=== PATIENT | female | born 1975 | race Caucasian/White ===

== ENCOUNTER 2018-03-25 19:46 | Inpatient (IN) ==
--- NOTE | 2018-03-25 20:20 | Emergency Department Note ---
Disposition Clinical Impression: Acute anxiety, Substance abuse, Auditory hallucinations UTI (urinary tract infection) Qualifiers: Urinary tract infection type: acute cystitis Hematuria presence: without hematuria Qualified Code(s): N30.00 - Acute cystitis without hematuria Disposition: Admitted As Inpatient Condition: Good Time of Disposition: 23:11 Psych HPI - General Chief Complaint: ED Psychiatric Symptoms Stated Complaint: auditory hallucinations Time Seen by Provider: 03/25/18 20:07 Source: patient Nursing Notes Reviewed: Yes Vital Signs Reviewed: Yes - History of Present Illness HPI Narrative: 43-year-old female with prior psychiatric history on medication presents to the emergency department with a complaint of increased auditory hallucinations. She states there was a recent in the family and she has had problems at work and has just been under a lot of stress and has not been able to handle the stress very well. She does have a history of drug use. She is unsure if she has used any drugs. She states she normally uses cocaine. She denies alcohol use. She denies suicidal or homicidal ideation or thoughts. She denies visual hallucinations. Patient states that she fell down some stairs earlier. She complains of multiple areas of scrapes and contusions but no specific significant injuries. She complains of pain in both knees and left elbow. She does know if she hit her head or not but denies any significant headache. Denies neck pain. She does have some pain in the mid and lower back however this also was not acute and has been present for some time. She thinks she may have fell several days ago also. Pt complaint: anxiety, other (Auditory hallucinations) If medical clearance, reason: psychiatric condition Onset (ago): unknown Duration: constant, changing over time, getting worse History of similar episodes: Yes Improves with: medication Worsens with: drug use, other (Stress) Context: significant life stressor Alleged intoxication: No Associated Psychiatric Symptoms: auditory hallucinations, anxiety Associated symptoms: Reports: denies other symptoms Treatments prior to arrival: none Self harm or harm to others: denies thoughts of harming self/others - Related Data Home Medications Medication Instructions Recorded Confirmed ALPRAZolam [Xanax 1 MG Tablet] 1 mg PO TID 02/16/18 02/16/18 Brexpiprazole [Rexulti] 3 mg PO DAILY 02/16/18 02/16/18 Cyanocobalamin (Vitamin B-12) 1,000 mcg PO DAILY 02/16/18 02/16/18 [Vitamin B12] Duloxetine HCl [Cymbalta] 60 mg PO BID 02/16/18 02/16/18 Ergocalciferol (VITAMIN D2) 50,000 unit PO MO 02/16/18 02/16/18 [Vitamin D2] Loratadine [Allergy Relief] 10 mg PO DAILY 02/16/18 02/16/18 Sotalol [Betapace] 80 mg PO BID 02/16/18 02/16/18 Previous Rx's Medication Instructions Recorded cephALEXin [Keflex] 500 mg PO BID #10 capsule 03/25/18 Allergies Allergy/AdvReac Type Severity Reaction Status Date / Time cariprazine [From Vraylar] AdvReac See Verified 02/16/18 21:14 Comments All systems ED: reviewed and negative except as stated. Constitutional: Denies: fever, chills, weakness Cardiovascular: Denies: chest pain, syncope Respiratory: Denies: cough, dyspnea Gastrointestinal: Denies: abdominal pain, vomiting, diarrhea Genitourinary: Denies: dysuria, frequency, abnormal menses Neurological: Denies: headache, weakness, numbness, paresthesias Psychiatric: Reports: anxiety, auditory hallucinations. 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 Rapid pressured speech. She appears to be under the influence of drugs.) - Head Head exam: atraumatic, normocephalic, normal inspection - Eye Eye exam: Present: normal appearance, PERRL, EOMI. Absent: scleral icterus, conjunctival injection - ENT ENT exam: normal exam, normal oropharynx, mucous membranes moist - Neck Neck exam: Present: normal inspection, full ROM, trachea midline. Absent: tenderness, meningismus, lymphadenopathy - Chest Chest inspection: Present: normal inspection, symmetric chest wall rise. Absent: tenderness - Respiratory Respiratory exam: Present: normal lung sounds bilaterally. Absent: respiratory distress, wheezes, stridor - Cardiovascular Cardiovascular exam: Present: regular rate, normal rhythm, normal heart sounds - Abdominal Exam Abdominal exam: Present: soft, Non-Tender, normal bowel sounds. Absent: distention, guarding, rebound, rigidity - Extremities Exam Extremities exam: Present: full ROM, other (There is a superficial abrasion to the left elbow area. Small bruise to the right forearm. Mild contusion to the anterior knees bilaterally with some mild erythema. No significant swelling or deformity.). Absent: pedal edema, joint swelling - Back Exam Back exam: Present: normal inspection, full ROM. Absent: tenderness, CVA tenderness (R), CVA tenderness (L) - Neurological Exam Neurological exam: Present: alert. Absent: motor sensory deficit - Psychiatric Psychiatric exam: Present: agitated, anxious. Absent: homicidal ideation, suicidal ideation - Skin Skin exam: Present: warm, dry. Absent: cyanosis, diaphoresis Course Course Narrative: 43-year-old female with psychiatric history presents with increased stress and increased auditory hallucinations. She denies suicidal or homicidal ideation. She admits to drug use. Unsure if she used any today. She did have a fall, she thinks on some stairs. She has several small bruises and scrapes but nothing that needs imaged. Urine tox screen positive for amphetamine and benzodiazepines. Patient medically cleared. [address] psychiatry department was consulted to evaluate patient in the emergency department. After evaluation patient is being admitted to the [address] psychiatric unit. [place] slip signed by me. Patient did receive Geodon 20 mg IM due to increased agitation and she became uncooperative. She also was given Keflex 500 mg by mouth for her UTI as well as a prescription. Vital Signs Temperature 97.5 F L 03/25/18 20:18 Pulse Rate 97 03/25/18 20:18 Respiratory Rate 20 03/25/18 20:18 Blood Pressure 129/90 03/25/18 20:18 O2 Sat by Pulse Oximetry 95 03/25/18 20:18 Temperature 97.5 F L 03/25/18 20:18 Pulse Rate 98 03/26/18 00:20 Respiratory Rate 18 03/26/18 00:20 Blood Pressure 103/69 03/26/18 00:20 O2 Sat by Pulse Oximetry 97 03/26/18 00:20 Oxygen Delivery Oxygen Delivery Room Air Psych - Lab Data Lab results reviewed: Yes I reviewed the patient's lab results. Result diagrams: 03/25/18 20:21 03/25/18 20:21 Lab Results 03/25/18 03/25/18 03/25/18 Range/Units 20:21 20:21 20:23 WBC 10.1 (4.3-11.1) K/mcL RBC 3.87 (3.82-4.97) M/mcL Hgb 11.5 (11.5-15.4) g/dL Hct 33.1 L (35.3-44.9) % MCV 85.5 (83.0-100.0) fL MCH 29.7 (28.0-33.3) pg MCHC 34.7 (31.6-35.5) g/dL RDW 12.4 (11.5-14.5) % Plt Count 247 (140-400) K/mcL MPV 9.0 L (9.4-12.4) fL Immature Gran % 0.3 (0-4) % Seg Neutrophils % 63.8 % Lymphocytes % 23.6 % Monocytes % 10.2 % Eosinophils % 1.2 % Basophils % 0.9 % Neutrophils # 6.5 (1.6-8.9) K/mcL Lymphocytes # 2.4 (0.6-4.6) K/mcL Monocytes # 1.0 (0.0-1.3) K/mcL Eosinophils # 0.1 (0.0-0.6) K/mcL Basophils # 0.1 (0.0-0.2) K/mcL Sodium 140 (136-145) mEq/L Potassium 3.7 (3.5-5.1) mEq/L Chloride 109 H (98-107) mEq/L Carbon Dioxide 21 L (23-29) mEq/L BUN 23 H (6-20) mg/dL Creatinine 0.95 (0.60-1.20) mg/dL Est GFR ( Amer) > 60 (> 60) Est GFR (Non-Af Amer) > 60 (> 60) BUN/Creatinine Ratio 24 (6-26) Glucose 90 (70-105) mg/dL Calculated Osmolality 293 (280-300) Calcium 9.0 (8.6-10.3) mg/dL Urine Color Yellow (Yellow) Urine Clarity Clear (Clear) Urine pH 6.0 (5.0-8.0) pH Units Ur Specific [facility] 1.025 (1.010-1.025) Urine Protein 30 H (Neg-Trace) mg/dL Urine Glucose (UA) Normal (Normal) mg/dL Urine Ketones Trace H (Negative) mg/dL Urine Blood Moderate H (Negative) Urine Nitrite Negative (Negative) Urine Bilirubin Negative (Negative) Urine Urobilinogen Normal (Normal) mg/dL Ur Leukocyte Esterase Small H (Negative) Urine Microscopic RBC 3-5 H (0-3) per hpf Urine Microscopic WBC 15-30 H (0-3) per hpf Ur Squamous Epith Cells Many H (None-Few) per lpf Urine Bacteria Few (None-Few) per hpf Hyaline Casts Few (None-Few) per lpf Urine Test (Negative) Salicylates < 2.5 L (15.0-30.0) mg/dL Urine Opiates Screen (Rymutp=373) ng/mL Acetaminophen < 10 L (10-20) mcg/mL Ur Barbiturates Screen (Wlftro=705) ng/mL Ur Phencyclidine Scrn (Cutoff=25) ng/mL Ur Amphetamines Screen (Orzfyl=1570) ng/mL U Benzodiazepines Scrn (Ecfpal=229) ng/mL Urine Cocaine Screen (Cutoff= 300) ng/mL U Marijuana (THC) Screen (Cutoff = 50) ng/mL Ur Drug Screen Interp Ethyl Alcohol < 10 (Less than 10) mg/dL 03/25/18 03/25/18 Range/Units 20:23 20:23 WBC (4.3-11.1) K/mcL RBC (3.82-4.97) M/mcL Hgb (11.5-15.4) g/dL Hct (35.3-44.9) % MCV (83.0-100.0) fL MCH (28.0-33.3) pg MCHC (31.6-35.5) g/dL RDW (11.5-14.5) % Plt Count (140-400) K/mcL MPV (9.4-12.4) fL Immature Gran % (0-4) % Seg Neutrophils % % Lymphocytes % % Monocytes % % Eosinophils % % Basophils % % Neutrophils # (1.6-8.9) K/mcL Lymphocytes # (0.6-4.6) K/mcL Monocytes # (0.0-1.3) K/mcL Eosinophils # (0.0-0.6) K/mcL Basophils # (0.0-0.2) K/mcL Sodium (136-145) mEq/L Potassium (3.5-5.1) mEq/L Chloride (98-107) mEq/L Carbon Dioxide (23-29) mEq/L BUN (6-20) mg/dL Creatinine (0.60-1.20) mg/dL Est GFR ( Amer) (> 60) Est GFR (Non-Af Amer) (> 60) BUN/Creatinine Ratio (6-26) Glucose (70-105) mg/dL Calculated Osmolality (280-300) Calcium (8.6-10.3) mg/dL Urine Color (Yellow) Urine Clarity (Clear) Urine pH (5.0-8.0) pH Units Ur Specific [facility] (1.010-1.025) Urine Protein (Neg-Trace) mg/dL Urine Glucose (UA) (Normal) mg/dL Urine Ketones (Negative) mg/dL Urine Blood (Negative) Urine Nitrite (Negative) Urine Bilirubin (Negative) Urine Urobilinogen (Normal) mg/dL Ur Leukocyte Esterase (Negative) Urine Microscopic RBC (0-3) per hpf Urine Microscopic WBC (0-3) per hpf Ur Squamous Epith Cells (None-Few) per lpf Urine Bacteria (None-Few) per hpf Hyaline Casts (None-Few) per lpf Urine Test Negative (Negative) Salicylates (15.0-30.0) mg/dL Urine Opiates Screen Negative (Nwtxtv=941) ng/mL Acetaminophen (10-20) mcg/mL Ur Barbiturates Screen Negative (Bzwaxb=405) ng/mL Ur Phencyclidine Scrn Negative (Cutoff=25) ng/mL Ur Amphetamines Screen Positive H (Ycebuo=6960) ng/mL U Benzodiazepines Scrn Positive H (Lcyzpy=053) ng/mL Urine Cocaine Screen Negative (Cutoff= 300) ng/mL U Marijuana (THC) Screen Negative (Cutoff = 50) ng/mL Ur Drug Screen Interp See Below Ethyl Alcohol (Less than 10) mg/dL Psychiatric Medical Clearance - Medical Clearance Checklist Medical History: No Social History Section defined Current Vitals: Last Vital Signs Temp 97.5 F L 03/25/18 20:18 Pulse 98 03/26/18 00:20 Resp 18 03/26/18 00:20 BP 103/69 03/26/18 00:20 Pulse Ox 97 03/26/18 00:20 Psychiatric Lab Panel: Drug Levels and Toxicity 03/25/18 03/25/18 20:21 20:23 Urine Opiates Screen Negative Acetaminophen < 10 L Ur Barbiturates Screen Negative Ur Phencyclidine Scrn Negative Ur Amphetamines Screen Positive H U Benzodiazepines Scrn Positive H Urine Cocaine Screen Negative U Marijuana (THC) Screen Negative Ethyl Alcohol < 10 Abnormal Labs: Abnormal lab results Hct 33.1 % (35.3-44.9) L 03/25/18 20:21 MPV 9.0 fL (9.4-12.4) L 03/25/18 20:21 Chloride 109 mEq/L (98-107) H 03/25/18 20:21 Carbon Dioxide 21 mEq/L (23-29) L 03/25/18 20:21 BUN 23 mg/dL (6-20) H 03/25/18 20:21 Urine Protein 30 mg/dL (Neg-Trace) H 03/25/18 20:23 Urine Ketones Trace mg/dL (Negative) H 03/25/18 20:23 Urine Blood Moderate (Negative) H 03/25/18 20:23 Ur Leukocyte Esterase Small (Negative) H 03/25/18 20:23 Urine Microscopic RBC 3-5 per hpf (0-3) H 03/25/18 20:23 Urine Microscopic WBC 15-30 per hpf (0-3) H 03/25/18 20:23 Ur Squamous Epith Cells Many per lpf (None-Few) H 03/25/18 20:23 Salicylates < 2.5 mg/dL (15.0-30.0) L 03/25/18 20:21 Acetaminophen < 10 mcg/mL (10-20) L 03/25/18 20:21 Ur Amphetamines Screen Positive ng/mL (Wdfknv=1704) H 03/25/18 20:23 U Benzodiazepines Scrn Positive ng/mL (Ftfgge=810) H 03/25/18 20:23 Statement of Medical Clearance: I have evaluated the patient, reviewed diagnostic information, and certify that the patient's medical condition is sufficiently stable that transfer to the psychiatric unit does not pose a significant risk of deterioration.
[2018-03-25 20:33] LABS: Basophils # 0.1 K/mcL (0.0-0.2); Basophils % 0.9 %; Eosinophils # 0.1 K/mcL (0.0-0.6); Eosinophils % 1.2 %; Hematocrit 33.1 % (35.3-44.9); Hemoglobin 11.5 g/dL (11.5-15.4); Immature Granulocytes % 0.3 % (0-4); Lymphocytes # 2.4 K/mcL (0.6-4.6); Lymphocytes % 23.6 %; Mean Corpuscular HGB Conc 34.7 g/dL (31.6-35.5); Mean Corpuscular Hemoglobin 29.7 pg (28.0-33.3); Mean Corpuscular Volume 85.5 fL (83.0-100.0); Monocytes % 10.2 %; Neutrophils # 6.5 K/mcL (1.6-8.9); Platelet Count 247 K/mcL (140-400); Red Blood Count 3.87 M/mcL (3.82-4.97); Red Cell Distribution Width 12.4 % (11.5-14.5); Segmented Neutrophils % 63.8 %
[2018-03-25 20:39] LABS: Bilirubin,Urine Negative (Negative); Blood,Urine Moderate (Negative); Clarity,Urine Clear (Clear); Color,Urine Yellow (Yellow); Glucose,Urine (UA) Normal (Normal); Ketones,Urine Trace mg/dL (Negative); Leukocyte Esterase,Urine Small (Negative); Nitrite,Urine Negative (Negative); Protein,Urine 30 mg/dL (Neg-Trace); Specific Gravity,Urine 1.025 (1.010-1.025); Urobilinogen,Urine Normal (Normal)
[2018-03-25 20:41] LABS: Bacteria,Urine Few per hpf (None-Few); Hyaline Casts,Urine Few per lpf (None-Few); Squamous Epithelial Cell,Urine Many per lpf (None-Few); WBC,Urine 15-30 per hpf (0-3)
[2018-03-25 20:50] LABS: Acetaminophen < 10 mcg/mL (10-20); BUN/Creatinine Ratio 24 (6-26); Blood Urea Nitrogen 23 mg/dL (6-20); Carbon Dioxide 21 mEq/L (23-29); Chloride 109 mEq/L (98-107); Ethanol < 10 mg/dL (Less than 10); Glucose 90 mg/dL (70-105); Osmolality,Calculated 293 (280-300); Potassium 3.7 mEq/L (3.5-5.1); Salicylate < 2.5 mg/dL (15.0-30.0); Sodium 140 mEq/L (136-145); eGFR For Non-African Americans > 60 (> 60)
[2018-03-25 20:52] LABS: Amphetamine Screen,Urine Positive ng/mL (Cutoff=1000); Barbiturate Screen,Urine Negative ng/mL (Cutoff=200); Benzodiazepines Screen,Urine Positive ng/mL (Cutoff=200); Cannabinoid Screen,Urine Negative ng/mL (Cutoff = 50); Cocaine Screen,Urine Negative ng/mL (Cutoff= 300); Opiate Screen,Urine Negative ng/mL (Cutoff=300); Phencyclidine Screen,Urine Negative ng/mL (Cutoff=25)
[2018-03-25] MEDS ORDERED: Ziprasidone injection 20 MG/ML VIAL IM ONE (23:00)
[2018-03-25] MEDS ORDERED: cephALEXin 250 MG CAPSULE PO STA (23:01)
[2018-03-26] MEDS ORDERED: MOM Conc 10 ML UD.LIQ PO PRN (01:57)
[2018-03-26] MEDS ORDERED: *HR* LORazepam 1 MG TABLET PO PRN (01:57)
[2018-03-26] MEDS ORDERED: Ibuprofen 400 MG TABLET PO PRN (01:57)
[2018-03-26] MEDS ORDERED: Mag Hydrox/Al Hydrox/Simeth 30 ML UDC PO PRN (01:57)
[2018-03-26] MEDS ORDERED: Haloperidol Lactate 5 MG/ML VIAL IM PRN (01:57)
[2018-03-26] MEDS ORDERED: *HR* LORazepam 2 MG/ML VIAL IM PRN (01:57)
[2018-03-26] MEDS ORDERED: clonazePAM 1 MG TABLET PO PRN (10:59)
[2018-03-26] MEDS ORDERED: NON-FORMULARY MEDICATION 1 EACH EACH (Duloxetine Hcl [Cymbalta] 60 MG) PO SCH (11:00)
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
[2018-03-26] MEDS: Cyanocobalamin (B-12) 1,000 MCG TABLET PO SCH (13:46)
[2018-03-27] MEDS: hydrOXYzine pamoate 25 MG CAPSULE PO PRN ×2 (00:26→21:42)
[2018-03-27] MEDS: traZODone 50 MG TABLET PO PRN ×2 (00:26→21:42)
[2018-03-27] MEDS: Cyanocobalamin (B-12) 1,000 MCG TABLET PO SCH (09:35)
[2018-03-27] MEDS: cephALEXin 500 MG CAPSULE PO SCH ×2 (09:38→21:42)
--- NOTE | 2018-03-27 18:15 | Psychiatry Progress Note ---
Date of Encounter: 03/27/18 Time of Encounter: 08:00 Subjective Interval history: Patient tolerating being back on her psychiatric medications. She denies SI or HI. She is still having some AH and VH and thought blocking. Was not able to attend any groups yesterday. Review of Systems Constitutional: Denies: fever, chills, weakness, weight change Musculoskeletal: Denies: joint swelling, joint pain Neurological: Denies: headache, weakness, numbness, memory loss Psychiatric: Reports: depression, anxiety, auditory hallucinations, difficulty concentrating, hopelessness Results - Vital Signs Vital Signs: Temp Pulse Resp BP Pulse Ox 99.6 F 73 20 120/75 99 03/27/18 09:00 03/27/18 09:00 03/27/18 09:00 03/27/18 09:00 03/27/18 09:00 Assessment and Plan (1) Acute psychosis Current visit: No Status: Acute Plan: Continue hospitalization, Close observation, Suicide Precautions per unit protocol, Encourage participation in unit milieu, Group Therapy, Monitor sleep, Monitor appetite Additional Plan: continue medications. Encourage groups Risks, benefits, side effects, alternatives discussed w/pt: Yes Patient agreeable to treatment: Yes Consult Discharge Plan - Plan Referrals: NONE,PCP [Primary Care Provider] - Psychiatry Exam - Constitutional Vitals: Temp Pulse Resp BP Pulse Ox 99.6 F 73 20 120/75 99 03/27/18 09:00 03/27/18 09:00 03/27/18 09:00 03/27/18 09:00 03/27/18 09:00 General appearance: disheveled, thin - Musculoskeletal Gait: slow Station: slouched Strength & Tone: normal for patient - Psychiatric Patient Orientation: Yes Person, Yes Time, Yes Place Level of alertness: Alert Behavior: distractible Psychomotor activity: Slowed Eye Contact: Minimal Contact Mood Description: Depressed Patient description of mood: "fine" Affect description: blunted Speech Volume: Soft/Quiet Speech pattern: limited Language & Vocabulary: limited Thought Process: Thought Blocking Thought Content: No Suicidal ideation, No Homicidal ideation Perceptual Disturbances: Yes Auditory hallucinations, Yes Visual hallucinations Attention Span Ability: Unable to Sustain Attention Memory Description: Grossly Intact Patient Reliability: Questionable Historian Fund of knowledge: Yes average Intelligence Estimate: Average Judgment: Limited Insight: Minimal
--- NOTE | 2018-03-28 08:39 | Discharge Summary ---
Date of Encounter: 03/28/18 Time of Encounter: 08:07 Diagnosis - Discharge Diagnosis (1) Major depression with psychotic features Status: Acute Medications - Discharge Medications Prescriptions: Buspirone HCl [Buspar] 10 mg PO TID #90 tablet hydrOXYzine pamoate [HydrOXYzine Pamoate] 25 mg PO TID PRN #60 capsule PRN Reason: Anxiety Lurasidone [Latuda] 40 mg PO DAILY #30 tablet traZODone [TraZODone] 50 mg PO HS PRN #30 tablet PRN Reason: Insomnia ALPRAZolam [Xanax 1 MG Tablet] 1 mg PO TID 02/16/18 [History] Cyanocobalamin (Vitamin B-12) [Vitamin B12] 1,000 mcg PO DAILY 02/16/18 [History] Duloxetine HCl [Cymbalta] 120 mg PO DAILY 02/16/18 [History] Ergocalciferol (VITAMIN D2) [Vitamin D2] 50,000 unit PO QWEEK 02/16/18 [History] Loratadine [Allergy Relief] 10 mg PO DAILY 02/16/18 [History] Sotalol [Betapace] 80 mg PO BID 02/16/18 [History] Benztropine Mesylate 0.5 mg PO BID PRN 03/26/18 [History] Buspirone HCl [Buspar] 10 mg PO TID #90 tablet 03/28/18 [Rx] Lurasidone [Latuda] 40 mg PO DAILY #30 tablet 03/28/18 [Rx] cephALEXin [Keflex] 500 mg PO BID capsule 03/28/18 [Rx] hydrOXYzine pamoate [HydrOXYzine Pamoate] 25 mg PO TID PRN #60 capsule 03/28/18 [Rx] traZODone [TraZODone] 50 mg PO HS PRN #30 tablet 03/28/18 [Rx] Allergy/AdvReac Type Severity Reaction Status Date / Time cariprazine [From Vraylar] AdvReac See Verified 02/16/18 21:14 Comments Results Procedures and tests throughout hospitalization: Completed Lab Orders Category Date Time Status Acetaminophen Stat Lab 03/25/18 20:21 Completed Basic Metabolic Panel Stat Lab 03/25/18 20:21 Completed Complete Blood Count [HEME] Stat Lab 03/25/18 20:21 Completed Drug Screen, Urine [UCHEM] Stat Lab 03/25/18 20:23 Completed Ethanol Stat Lab 03/25/18 20:21 Completed Test Result, Urine [URIN] Stat Lab 03/25/18 20:23 Completed Salicylate Stat Lab 03/25/18 20:21 Completed Urinalysis reflex Microscopic [URIN] Stat Lab 03/25/18 20:23 Completed Laboratory Tests 03/25/18 03/25/18 03/25/18 20:21 20:21 20:23 WBC 10.1 RBC 3.87 Hgb 11.5 Hct 33.1 L MCV 85.5 MCH 29.7 MCHC 34.7 RDW 12.4 Plt Count 247 MPV 9.0 L Immature Gran % 0.3 Seg Neutrophils % 63.8 Lymphocytes % 23.6 Monocytes % 10.2 Eosinophils % 1.2 Basophils % 0.9 Neutrophils # 6.5 Lymphocytes # 2.4 Monocytes # 1.0 Eosinophils # 0.1 Basophils # 0.1 Sodium 140 Potassium 3.7 Chloride 109 H Carbon Dioxide 21 L BUN 23 H Creatinine 0.95 Est GFR ( Amer) > 60 Est GFR (Non-Af Amer) > 60 BUN/Creatinine Ratio 24 Glucose 90 Calculated Osmolality 293 Calcium 9.0 Urine Color Yellow Urine Clarity Clear Urine pH 6.0 Ur Specific [place] 1.025 Urine Protein 30 H Urine Glucose (UA) Normal Urine Ketones Trace H Urine Blood Moderate H Urine Nitrite Negative Urine Bilirubin Negative Urine Urobilinogen Normal Ur Leukocyte Esterase Small H Urine Microscopic RBC 3-5 H Urine Microscopic WBC 15-30 H Ur Squamous Epith Cells Many H Urine Bacteria Few Hyaline Casts Few Urine Test Salicylates < 2.5 L Urine Opiates Screen Acetaminophen < 10 L Ur Barbiturates Screen Ur Phencyclidine Scrn Ur Amphetamines Screen U Benzodiazepines Scrn Urine Cocaine Screen U Marijuana (THC) Screen Ur Drug Screen Interp Ethyl Alcohol < 10 03/25/18 03/25/18 20:23 20:23 WBC RBC Hgb Hct MCV MCH MCHC RDW Plt Count MPV Immature Gran % Seg Neutrophils % Lymphocytes % Monocytes % Eosinophils % Basophils % Neutrophils # Lymphocytes # Monocytes # Eosinophils # Basophils # Sodium Potassium Chloride Carbon Dioxide BUN Creatinine Est GFR ( Amer) Est GFR (Non-Af Amer) BUN/Creatinine Ratio Glucose Calculated Osmolality Calcium Urine Color Urine Clarity Urine pH Ur Specific [place] Urine Protein Urine Glucose (UA) Urine Ketones Urine Blood Urine Nitrite Urine Bilirubin Urine Urobilinogen Ur Leukocyte Esterase Urine Microscopic RBC Urine Microscopic WBC Ur Squamous Epith Cells Urine Bacteria Hyaline Casts Urine Test Negative Salicylates Urine Opiates Screen Negative Acetaminophen Ur Barbiturates Screen Negative Ur Phencyclidine Scrn Negative Ur Amphetamines Screen Positive H U Benzodiazepines Scrn Positive H Urine Cocaine Screen Negative U Marijuana (THC) Screen Negative Ur Drug Screen Interp See Below Ethyl Alcohol Provider Date of admission: 03/26/18 00:27 Primary care physician: PCP NONE Discharging clinician: Shyanne Butler Psychiatry Exam - Constitutional Vitals: Temp Pulse Resp BP Pulse Ox 98.4 F 85 18 106/76 100 03/27/18 20:21 03/27/18 20:21 03/27/18 20:21 03/27/18 20:21 03/27/18 20:21 General appearance: age & developmentally appropriate, well-groomed, well- nourished Additional observations: Patient is alert and oriented [address] time and situation, muscle tone grossly intact, speech normal limits for rhythm, rate, content and volume. Muscle tone is normal for patient. Grooming and hygiene are appropriate and eye contact is maintained appropriately. The patient appears age appropriate. Behavior is cooperative. Thought content is negative for suicidal or homicidal thoughts ideations or plans. There are no hallucinations or delusions. Mood is good and affect is reactive, consistent and congruent. Thought process is linear, logical, goal oriented and coherent thought. Memory is intact to recent and remote as the patient is able to recall several items after a delay and can consistently recall childhood information. Language and vocabulary are consistent with education and intelligence is estimated to be average based on education and general fund of information. Concentration and attention are sustained and appropriate. Insight and judgment are intact as the patient agrees with her diagnosis and the need for ongoing mental health treatment. - Musculoskeletal Gait: normal Station: relaxed Strength & Tone: normal for patient - Psychiatric Patient Orientation: Yes Person, Yes Time, Yes Place Level of alertness: Alert Behavior: calm, cooperative Psychomotor activity: Normal Eye Contact: Maintains Eye Contact Mood Description: Euthymic/stable Affect description: congruent with mood, full range Speech Volume: Normal Speech pattern: normal rate, normal rhythm, normal tone, fluent, spontaneous Language & Vocabulary: consistent with education Thought Process: Linear, Goal Oriented Thought Content: No Suicidal ideation, No Homicidal ideation, No Overt delusions Perceptual Disturbances: No Auditory hallucinations, No Visual hallucinations Attention Span Ability: Capable of Focused Attention Memory Description: Grossly Intact Patient Reliability: Reliable Historian Fund of knowledge: Yes abstraction ability, Yes aware of current events Intelligence Estimate: Average Judgment: Limited Insight: Partial Hospital Course Hospital course: Ms. Ruiz is a 43 year old female auditory hallucinations as well as depressive symptoms. She had been off her home with 2 days of this was restarted at 40 mg. We used Klonopin for control of her anxiety over she preferred to go back to her Xanax which she still had at home.Patient was educated of diagnosis and the risk-benefit side effects of this alternative treatment options and was monitored for responsiveness and side effects. Mood anxiety sleep and appetite interest improved as did future orientation. Self-harm thoughts subsided, thinking cleared, psychosis resolved, and mood stabilized. Patient was able to attend both individual and group therapy sessions as well as meeting with the psychiatrist daily and urged to discuss any medication or treatment issues or other concerns. The patient was educated primarily by verbal means about their diagnosis and manifestations in their life. The option for treatment including group and individual therapy programming was offered to the patient in the use of medications with all their potential risks, benefits, and side effects were discussed with the patient at length. The patient was given the opportunity to ask questions and was noted to participate in the treatment in the planning process. The patient felt ready and eager to be discharged from the inpatient psychiatric unit to continue on with treatment as an outpatient. Her 72 hour hold and there were not grounds to probate her. The patient agreed that is they were safe for this disposition. The patient was considered to be able to participate in informed consent and decision making with respect to medical, legal, and financial issues of the time of discharge. At the time of discharge the patient adamantly denied any concerns for lethality including suicidal or homicidal thoughts ideations or plans and was future oriented toward ongoing mental health care, medical follow-up and sobriety. Time spent discussing smoking cessation with patient: 3 to 10 minutes Does patient wish to continue nicotine replacement upon disc: No - Time Spent with Patient Total time spent providing and/or coordinating discharge services: Less than 30 minutes (Interval history reviewed. Available labs reviewed . Psychotherapy provided. Patient had an opportunity to ask questions and address concerns. Patient was in agreement with the treatment plan. The risks benefits and side effects of medications were discussed with the patient, including alternatives and treatment. The patient was educated on the abstaining from any alcohol or illicit substances, following up with all scheduled appointments, and taking all medications as prescribed. The patient was educated on 90 meetings in 90 days and to find a sponsor.) Assessment and Plan - Patient/Caregiver Discharge Instructions Activity: resume usual activities as tolerated Diet: regular diet Additional Instructions: Continue current medications. Follow up with outpatient mental health. Encourage continued therapy in a group or individual setting. The patient was discharged to home. - Follow up Plan Follow up with: NONE,PCP [Primary Care Provider] - Functional capacity at discharge: independent ambulation Overall status at discharge: Stable Disposition: Home, Self-Care Quality - Multiple Antipsychotics Patient discharged on 2 or more antipsychotic medications: No Procedures - Procedures Procedures: Medication Management, Crisis Stabilization, Supportive Therapy, Group Therapy, Psychoeducational Therapy
[2018-03-28 09:28] VITALS: BP 109/71
[2018-03-28] MEDS: cephALEXin 500 MG CAPSULE PO SCH (09:30)
[2018-03-28] MEDS: Cyanocobalamin (B-12) 1,000 MCG TABLET PO SCH (09:30)
== END 2018-03-28 11:05 | disposition home or self-care (01) | DRG 751 ==
LOC: EMEROOARM 19:46 → SUATTDRO 03-26 00:27 → 1ANU 03-26 00:27
PROVIDERS: ADMIT Psychiatry & Neurology Psychiatry; ATTEND Psychiatry & Neurology Psychiatry

== ENCOUNTER 2018-08-11 17:09 | Inpatient (IN) ==
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
[2018-08-11] MEDS ORDERED: 0.9 % Sodium Chloride 1,000 ML IVC STA ×2 (17:28→21:38)
[2018-08-11] MEDS ORDERED: *HR* LORazepam 2 MG/ML VIAL IVP ONE ×2 (17:29→18:08)
[2018-08-11] MEDS ORDERED: Haloperidol Lactate 5 MG/ML VIAL IVP ONE (17:54)
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
[2018-08-11 19:04] LABS: Basophils # 0.1 K/mcL (0.0-0.2); Basophils % 0.4 %; Eosinophils % 0.2 %; Hematocrit 30.9 % (35.3-44.9); Immature Granulocytes % 0.4 % (0-4); Lymphocytes # 1.3 K/mcL (0.6-4.6); Lymphocytes % 9.2 %; Mean Corpuscular HGB Conc 32.4 g/dL (31.6-35.5); Mean Corpuscular Hemoglobin 28.9 pg (28.0-33.3); Mean Corpuscular Volume 89.3 fL (83.0-100.0); Mean Platelet Volume 8.6 fL (9.4-12.4); Neutrophils # 11.3 K/mcL (1.6-8.9); Platelet Count 302 K/mcL (140-400); Red Blood Count 3.46 M/mcL (3.82-4.97); Red Cell Distribution Width 13.2 % (11.5-14.5); Segmented Neutrophils % 82.8 %; White Blood Count 13.6 K/mcL (4.3-11.1)
[2018-08-11 19:26] LABS: Alanine Aminotransferase 16 Units/L (7-52); Albumin 3.2 g/dL (3.5-5.7); Albumin/Globulin Ratio 1.8 (1.1-2.2); Alkaline Phosphatase 37 Units/L (34-104); Aspartate Amino Transferase 24 Units/L (13-39); BUN/Creatinine Ratio 26 (6-26); Bilirubin,Direct 0.1 mg/dL (0.0-0.2); Bilirubin,Indirect 0.6 mg/dL (0.0-1.2); Bilirubin,Total 0.7 mg/dL (0.3-1.0); Blood Urea Nitrogen 19 mg/dL (6-20); Calcium 7.5 mg/dL (8.6-10.3); Carbon Dioxide 18 mEq/L (23-29); Chloride 112 mEq/L (98-107); Creatine Kinase 450 Units/L (30-223); Globulin 1.8 g/dL (2.4-3.5); Glucose 65 mg/dL (70-105); Osmolality,Calculated 292 (280-300); Potassium 3.1 mEq/L (3.5-5.1); Sodium 141 mEq/L (136-145); Troponin I < 0.03 ng/mL (< 0.04); eGFR For African Americans > 60 (> 60); eGFR For Non-African Americans > 60 (> 60)
[2018-08-11] MEDS ORDERED: Naloxone 0.4 MG/ML INJ IVP PRN (22:12)
[2018-08-11] MEDS ORDERED: *HR* OxyCODONE Immed Rel 5 MG TABLET PO PRN (22:12)
[2018-08-11] MEDS ORDERED: *HR* LORazepam 2 MG/ML VIAL IVP PRN (22:13)
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
[2018-08-12] MEDS ORDERED: Potassium Effervescent 25 MEQ TABLET.EFF PO ONE (00:29)
[2018-08-12 00:59] LABS: Basophils # 0.1 K/mcL (0.0-0.2); Basophils % 0.6 %; Eosinophils # 0.1 K/mcL (0.0-0.6); Eosinophils % 0.8 %; Hemoglobin 10.9 g/dL (11.5-15.4); Immature Granulocytes % 0.5 % (0-4); Immature Platelets 0.7 % (1.1-6.1); Lymphocytes # 1.2 K/mcL (0.6-4.6); Lymphocytes % 12.5 %; Mean Corpuscular HGB Conc 31.1 g/dL (31.6-35.5); Mean Corpuscular Hemoglobin 28.1 pg (28.0-33.3); Mean Corpuscular Volume 90.2 fL (83.0-100.0); Mean Platelet Volume 8.5 fL (9.4-12.4); Monocytes # 0.7 K/mcL (0.0-1.3); Monocytes % 6.8 %; Neutrophils # 7.8 K/mcL (1.6-8.9); Platelet Count 323 K/mcL (140-400); Red Blood Count 3.88 M/mcL (3.82-4.97); Red Cell Distribution Width 13.4 % (11.5-14.5); Segmented Neutrophils % 78.8 %; White Blood Count 9.9 K/mcL (4.3-11.1)
[2018-08-12 01:20] LABS: BUN/Creatinine Ratio 28 (6-26); Blood Urea Nitrogen 18 mg/dL (6-20); Calcium 7.7 mg/dL (8.6-10.3); Carbon Dioxide 16 mEq/L (23-29); Chloride 112 mEq/L (98-107); Creatine Kinase 396 Units/L (30-223); Glucose 73 mg/dL (70-105); Osmolality,Calculated 282 (280-300); Phosphorous 2.9 mg/dL (2.7-4.5); Potassium 3.8 mEq/L (3.5-5.1); Sodium 136 mEq/L (136-145); eGFR For African Americans > 60 (> 60); eGFR For Non-African Americans > 60 (> 60)
[2018-08-12] MEDS: Ringers Solution, Lactated 1,000 ML IVC SCH ×2 (01:59→06:01)
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
[2018-08-12] MEDS ORDERED: *HR* LORazepam 2 MG/ML VIAL IVP PRN (13:43)
[2018-08-12] MEDS: traMADol 50 MG TABLET PO PRN (21:15)
[2018-08-13 01:54] LABS: Hematocrit 33.2 % (35.3-44.9); Hemoglobin 10.8 g/dL (11.5-15.4); Mean Corpuscular HGB Conc 32.5 g/dL (31.6-35.5); Mean Corpuscular Volume 89.2 fL (83.0-100.0); Mean Platelet Volume 8.7 fL (9.4-12.4); Platelet Count 319 K/mcL (140-400); Red Blood Count 3.72 M/mcL (3.82-4.97); Red Cell Distribution Width 13.7 % (11.5-14.5)
[2018-08-13 02:01] LABS: White Blood Count 5.9 K/mcL (4.3-11.1)
[2018-08-13 02:16] LABS: BUN/Creatinine Ratio 12 (6-26); Blood Urea Nitrogen 10 mg/dL (6-20); Carbon Dioxide 24 mEq/L (23-29); Chloride 109 mEq/L (98-107); Glucose 118 mg/dL (70-105); Osmolality,Calculated 288 (280-300); Potassium 3.5 mEq/L (3.5-5.1); Sodium 139 mEq/L (136-145); eGFR For African Americans > 60 (> 60); eGFR For Non-African Americans > 60 (> 60)
[2018-08-13] MEDS: traMADol 50 MG TABLET PO PRN ×3 (04:01→20:28)
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
[2018-08-13] MEDS ORDERED: Ondansetron ODT 4 MG TAB.RAPDIS SL PRN (09:40)
--- NOTE | 2018-08-13 10:37 | Electrocardiograph Report ---
[address] [address] Test Date: 2018-08-11 Pat Name: Mayela Escoto Department: [id number] Room: 3B13 Gender: F Shank Stitcher: : 1975 Requested By: Marlene Lopez Order Number: [id number] Reading MD: Parker Sparks Measurements Intervals [place] Rate: 112 P: 83 ID: [id number] QRS: 70 QRSD: 102 T: 90 QT: 360 QTc: 492 Interpretive Statements Sinus tachycardia RSR' in V1 or V2, right VCD or RVH Borderline prolonged QT interval Electronically Signed On 08-13-2018 10:36:12 EDT by Parker Sparks
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
[2018-08-14] MEDS: traMADol 50 MG TABLET PO PRN ×3 (05:12→20:22)
[2018-08-14 07:30] LABS: Hematocrit 33.6 % (35.3-44.9); Mean Corpuscular HGB Conc 32.7 g/dL (31.6-35.5); Mean Corpuscular Hemoglobin 28.8 pg (28.0-33.3); Mean Platelet Volume 8.5 fL (9.4-12.4); Platelet Count 280 K/mcL (140-400); Red Blood Count 3.82 M/mcL (3.82-4.97); Red Cell Distribution Width 13.6 % (11.5-14.5)
[2018-08-14 07:32] LABS: White Blood Count 9.8 K/mcL (4.3-11.1)
[2018-08-14 07:52] LABS: BUN/Creatinine Ratio 18 (6-26); Blood Urea Nitrogen 10 mg/dL (6-20); Calcium 8.3 mg/dL (8.6-10.3); Carbon Dioxide 27 mEq/L (23-29); Chloride 102 mEq/L (98-107); Glucose 111 mg/dL (70-105); Osmolality,Calculated 284 (280-300); Potassium 3.9 mEq/L (3.5-5.1); Sodium 137 mEq/L (136-145); eGFR For African Americans > 60 (> 60); eGFR For Non-African Americans > 60 (> 60)
[2018-08-14] MEDS ORDERED: traZODone 50 MG TABLET PO PRN (07:53)
[2018-08-14] MEDS: Loratadine 10 MG TABLET PO SCH (09:40)
[2018-08-14] MEDS: Cholecalciferol (D-3) 1,000 UNIT TABLET PO SCH (09:40)
[2018-08-14] MEDS: Multivit/Ca/Min/Fe/FA 1 TAB TABLET PO SCH (09:41)
[2018-08-14] MEDS: OLANZapine 5 MG TAB.RAPDIS PO SCH ×2 (09:41→20:22)
[2018-08-14] MEDS ORDERED: Aminoglycoside Consult 1 EACH MC ONE (10:54)
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
[2018-08-14] MEDS ORDERED: Isovue-370 500 ML BOTTLE IVP ONE (13:31)
--- NOTE | 2018-08-14 15:23 | Event Note ---
Date of Encounter: 08/14/18 Time of Encounter: 15:18 Notified by nursing around time of discharging patient that she is having right arm swelling at place of IV site that was removed. Appears overnight cultures of IV tip was sent prior to new IV. No documentation was placed in chart. On exam there is erythema on cubital fossa region which is tender with slight firmness. There is a slight purulence at area of prior IV site insertion. CT arm obtained showed possible thrombophlebitis. Will start a dose for today and tomorrow of IV Vancomycin and if she improves, will DC with oral antibiotics with MRSA coverage, likely Bactrim.
[2018-08-14] MEDS: Acetaminophen 325 MG TABLET PO PRN ×2 (17:41→23:16)
[2018-08-15 02:48] LABS: Hematocrit 37.9 % (35.3-44.9); Hemoglobin 12.2 g/dL (11.5-15.4); Mean Corpuscular HGB Conc 32.2 g/dL (31.6-35.5); Mean Corpuscular Hemoglobin 29.5 pg (28.0-33.3); Mean Corpuscular Volume 91.5 fL (83.0-100.0); Mean Platelet Volume 8.8 fL (9.4-12.4); Platelet Count 256 K/mcL (140-400); Red Blood Count 4.14 M/mcL (3.82-4.97); Red Cell Distribution Width 13.5 % (11.5-14.5); White Blood Count 7.3 K/mcL (4.3-11.1)
[2018-08-15 03:15] LABS: BUN/Creatinine Ratio 17 (6-26); Blood Urea Nitrogen 10 mg/dL (6-20); Calcium 8.5 mg/dL (8.6-10.3); Carbon Dioxide 25 mEq/L (23-29); Chloride 104 mEq/L (98-107); Glucose 107 mg/dL (70-105); Osmolality,Calculated 280 (280-300); Potassium 3.9 mEq/L (3.5-5.1); Sodium 135 mEq/L (136-145); eGFR For African Americans > 60 (> 60); eGFR For Non-African Americans > 60 (> 60)
[2018-08-15] MEDS: traMADol 50 MG TABLET PO PRN (04:33)
[2018-08-15 07:22] VITALS: BP 92/65
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
[2018-08-15] MEDS ORDERED: Ketorolac 15 MG/ML VIAL IVP PRN (07:52)
[2018-08-15] MEDS: Loratadine 10 MG TABLET PO SCH (08:51)
[2018-08-15] MEDS: Acetaminophen 325 MG TABLET PO PRN (08:51)
[2018-08-15] MEDS: Multivit/Ca/Min/Fe/FA 1 TAB TABLET PO SCH (08:52)
[2018-08-15] MEDS: Cholecalciferol (D-3) 1,000 UNIT TABLET PO SCH (08:52)
[2018-08-15] MEDS: OLANZapine 5 MG TAB.RAPDIS PO SCH (08:52)
== END 2018-08-15 10:55 | disposition other institution (70) | DRG 776 ==
LOC: 3BNU 17:09 → EMEROOARM 17:09 → SUATTDRO 22:58 → 3BNU 23:25
PROVIDERS: ADMIT Internal Medicine; ATTEND Internal Medicine